=== PATIENT | male | born 1955 | race Caucasian/White ===

== ENCOUNTER 2018-02-14 08:54 | Emergency (ER) | payer MEDICARE, OTHER ==
[2018-02-14 09:03] VITALS: BP 157/87
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
== END 2018-02-14 10:06 | disposition home or self-care (01) ==
LOC: UCEAST 08:54
DX: K08.89 Other specified disorders of teeth and supporting structures (principal); Z91.040 Latex allergy status; Z87.891 Personal history of nicotine dependence
CPT/HCPCS: 99202; G0463

== ENCOUNTER 2018-08-20 08:17 | Emergency (ER) | payer MEDICARE, OTHER ==
[2018-08-20 08:24] VITALS: BP 147/93
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
== END 2018-08-20 08:46 | disposition home or self-care (01) ==
LOC: UCEAST 08:17
DX: J32.9 Chronic sinusitis, unspecified (principal); S50.862A Insect bite (nonvenomous) of left forearm, initial encounter; W57.XXXA Bitten or stung by nonvenomous insect and other nonvenomous arthropods, initial encounter; Y92.9 Unspecified place or not applicable; Z91.040 Latex allergy status; F17.200 Nicotine dependence, unspecified, uncomplicated
CPT/HCPCS: 99212; G0463